=== PATIENT | male | born 1985 | race Caucasian/White ===

== ENCOUNTER 2022-03-20 15:13 | Emergency (ER) | payer OTHER ==
[~2022-03-20] VITALS: Ht 185.4 cm; Wt 79.4 kg
== END 2022-03-20 17:53 | disposition home or self-care (01) ==
LOC: ER 15:13
DX: S00.33XA Contusion of nose, initial encounter (principal); X58.XXXA Exposure to other specified factors, initial encounter; Y93.89 Activity, other specified; Y92.89 Other specified places as the place of occurrence of the external cause; Y99.8 Other external cause status